=== PATIENT | male | born 1985 | race African-American/Black ===

== ENCOUNTER 2017-01-11 12:35 | Emergency (ER) | payer MEDICAID, OTHER ==
[~2017-01-11] VITALS: Ht 167.6 cm; Wt 55.5 kg
[~2017-01-11 12:35] MED LIST: OMEP20CA9 PO; ONDA4TAB35 PO; RANI150T9 PO
[2017-01-11 13:20] VITALS: Ht 167.6 cm; Wt 55.5 kg
[2017-01-11 17:31] LABS: ADD UMIC YES; UR ASCORBIC ACID 40 mg/dL (NEGATIVE); UR BILIRUBIN (Dip) NEGATIVE (NEGATIVE); UR BLOOD (Dip) 1+ mg/dL (NEGATIVE); UR CLARITY CLEAR (CLEAR); UR COLOR YELLOW (YELLOW); UR GLUCOSE (Dip) NEGATIVE (NEGATIVE); UR KETONES (Dip) NEGATIVE (NEGATIVE); UR LEUKOCYTE ESTERASE (Dip) NEGATIVE Leu/ul (NEGATIVE); UR NITRITE (Dip) NEGATIVE (NEGATIVE); UR RBC 48 /HPF (0-5); UR SPECIFIC GRAVITY (Dip) 1.018 (1.003-1.030); UR TOTAL PROTEIN (Dip) 1+ mg/dl (NEGATIVE); UR UROBILINOGEN (Dip) NEGATIVE (NEGATIVE)
--- NOTE | 2017-01-11 17:49 | ERD ---
ER Documentation Chief Complaint Chief Complaint urine in blood x1 day denies discharge HPI Patient is a 31-year-old male with no medical problems who presents with bleeding from his penis. He said it started at work today and he started urinating blood. He said that it was "a lot". He has burning with urination. He has no trauma. He has had no treatment as of yet. He has no blood thinners. He said that he is not sexually active over the past 3 months. ROS All systems reviewed and are negative except as per history of present illness. Medications Home Meds Discontinued Scripts Ondansetron Hcl* (Zofran* ODT) 4 mg -ODT Tab.disper, 4 MG PO Q6 Y for NAUSEA AND /OR VOMITING, #10 TAB Prov:KRIS LIU PA-C 08/30/15 Ranitidine Hcl* (Zantac*) 150 Mg Tablet, 150 MG PO BID Y for EPIGASTRIC PAIN, # 30 TAB Prov:KRIS LIU PA-C 08/30/15 Omeprazole* (Prilosec*) 20 Mg Capsule.dr, 20 MG PO BID, #30 CAP Prov:KRIS LIU PA-C 08/30/15 Allergies Allergies: Coded Allergies: No Known Allergy (Unverified , 01/11/17) PMhx/Soc Medical and Surgical Hx: pt denies Medical Hx, pt denies Surgical Hx Hx Psychiatric Problems: No Hx Miscellaneous Medical Probl: No Hx Alcohol Use: No Hx Substance Use: No Hx Tobacco Use: No Smoking Status: Never smoker FmHx Family History: diabetes Physical Exam Vitals Vital Signs Date Time Temp Pulse Resp B/P Pulse Ox O2 Delivery O2 Flow Rate FiO2 01/11/17 13:20 98.7 75 20 114/73 99 Physical Exam Const: No acute distress Head: Atraumatic Eyes: Normal Conjunctiva ENT: Normal External Ears, Nose and Mouth. Neck: Full range of motion..~ No meningismus. Resp: Clear to auscultation bilaterally Cardio: Regular rate and rhythm, no murmurs Abd: Soft, non tender, non distended. Normal bowel sounds Skin: No petechiae or rashes Back: No midline or flank tenderness Ext: No cyanosis, or edema Neur: Awake and alert : No bleeding from the penis at the meatus, no lesions or masses, no testicular pain or swelling Results 24 hrs Laboratory Tests Test 01/11/17 16:05 Urine Color YELLOW Urine Clarity CLEAR Urine pH 6.0 Urine Specific [place] 1.018 Urine Ketones NEGATIVEmg/dL Urine Nitrite NEGATIVEmg/dL Urine Bilirubin NEGATIVEmg/dL Urine Urobilinogen NEGATIVEmg/dL Urine Leukocyte Esterase NEGATIVELeu/ul Urine Microscopic RBC 48/HPF Urine Microscopic WBC 1/HPF Urine Hemoglobin 1+mg/dL Urine Glucose NEGATIVEmg/dL Urine Total Protein 1+mg/dl Procedures/MDM Urinalysis shows hematuria but no infection. Smoking Cessation Therapy: Pt. was lectured for greater than 3 minutes on the health risks of continued smoking and the benefits of cessation. Patient is a 31-year-old male with no medical problems who presents with hematuria. The urinalysis shows hematuria but no sign of infection. At this point I believe outpatient management is appropriate. I would not give antibiotics. The patient will need to follow-up closely with the primary doctor up with the local clinics over the next 24-48 hours. He will need outpatient workup for hematuria. A GC and chlamydia test is pending. Departure Diagnosis: Primary Impression: Hematuria Hematuria type: unspecified type Qualified Code: R31.9 - Hematuria, unspecified type Condition: Fair Patient Instructions: Hematuria Referrals: [facility] YOU HAVE RECEIVED A MEDICAL SCREENING EXAM AND THE RESULTS INDICATE THAT YOU DO NOT HAVE A CONDITION THAT REQUIRES URGENT TREATMENT IN THE EMERGENCY DEPARTMENT. FURTHER EVALUATION AND TREATMENT OF YOUR CONDITION CAN WAIT UNTIL YOU ARE SEEN IN YOUR DOCTORS OFFICE WITHIN THE NEXT 1-2 DAYS. IT IS YOUR RESPONSIBILITY TO MAKE AN APPOINTMENT FOR FOLOW-UP CARE. IF YOU HAVE A PRIMARY DOCTOR --you should call your primary doctor and schedule an appointment IF YOU DO NOT HAVE A PRIMARY DOCTOR YOU CAN CALL OUR PHYSICIAN REFERRAL HOTLINE AT IF YOU CAN NOT AFFORD TO SEE A PHYSICIAN YOU CAN CHOSE FROM THE FOLLOWING [facility] [address] [facility] [address] [facility] [address] [facility] [address] [facility] [address] [place] [address]. [facility]. [address] Additional Instructions: Call your primary care doctor TOMORROW for an appointment during the next 1-2 days.See the doctor sooner or return here if your condition worsens before your appointment time. MARK OCAMPO MD Jan 11, 2017 17:49
== END 2017-01-11 17:56 | disposition home or self-care (01) ==
LOC: E/R 12:35
DX: R31.9 Hematuria, unspecified (principal); F17.210 Nicotine dependence, cigarettes, uncomplicated
CPT/HCPCS: 81001; 87591; Z7502; 99283

== ENCOUNTER 2017-04-28 09:01 | Emergency (ER) | END 2017-04-28 10:43 | disposition home or self-care (01) ==